=== PATIENT | female | born 1990 | race Two or more races ===

== ENCOUNTER 2016-07-09 22:50 | Emergency (ER) | payer OTHER, MEDICAID ==
[2016-07-09 23:02] VITALS: RESP 16; TEMP 97.3; O2SAT 97
[2016-07-09] MEDS ORDERED: KETOROLAC 30 MG/1 ML SDV IVP ONE (23:17)
[2016-07-09] MEDS ORDERED: NS 1,000 ML IV ONE (23:17)
[2016-07-09] MEDS ORDERED: DEXAMETHASONE 10 MG/ML VIAL IVP ONE (23:17)
[2016-07-09] MEDS ORDERED: METOCLOPRAMIDE 10 MG/2 ML VIAL IVP ONE (23:17)
--- NOTE | 2016-07-09 23:20 | EDPHY ---
H & P Time Seen by Provider: 07/09/16 23:07 HPI/ROS: This is a 25-year-old female presenting to the emergency department complaining of intermittent headaches x 1months worsening headache over the past few days with increase in fluid intake increasing frequent urination. Patient states headache is worse frontal part of her head, intermittently throbbing. Denies any photophobia, no nausea or vomiting. Patient states she does have a history of migraines the only difference with the symptoms this time is increase in thirst and urination. Denies any other complaints REVIEW OF SYSTEMS: Constitutional: No fever no chills, increase in fluid intake Eyes: No blurred vision ENT: No sore throat Respiratory: No cough or shortness of breath Cardiac: No chest pain Gastrointestinal: No nausea vomiting Genitourinary: No dysuria, urinary frequency Musculoskeletal: No joint pain Skin: No rash Neurological: Positive headache no dizziness Past Medical/Surgical History: Past medical history: Positive for migraines Smoking Status: Never smoked Physical Exam: CONSTITUTIONAL: patient appeared well nourished, non-ill appearing and normally developed. No acute distress. Vital signs as documented. HEENT: Normocephalic atraumatic PERRLA. EOMI. NECK: Supple, FROM without pain RESP: Non-labored resp effort CARDIAC: RRR w/o murmur, keanu. Normal S1/S2 GI: Abd soft NTTP NEURO: AAOx3 CNII-XII intact. Ambulatory without gait disturbance EXTREMITIES: FROM without pain or difficulty. Positive cms intact SKIN: Warm and dry no rash PSYCH: Normal affect, calm, no distress, acting appropriately Constitutional: Initial Vital Signs Temperature (C) 36.3 C 07/09/16 23:01 Heart Rate 97 07/09/16 23:01 Respiratory Rate 16 07/09/16 23:01 Blood Pressure 118/81 H 07/09/16 23:01 O2 Sat (%) 97 07/09/16 23:01 O2 Delivery Mode Room Air Allergies/Adverse Reactions: No Known Allergies Allergy (Verified 07/09/16 23:02) Home Medications: Medication Instructions Recorded NK [No Known Home Meds] 07/09/16 Medical Decision Making ED Course/Re-evaluation: Discussed plan of care: IV fluids, CBC, Chem 7, IV Toradol 30 mg, IV Decadron, IV Benadryl, IV Reglan. 0020: Patient states she is feeling much better, states she has more of a dull headache may be a 0-1/10 no neuro changes. 0030: Discharge home--> stable, discussed discharge instructions Differential Diagnosis: Differential diagnosis considered but not limited to cluster headache, CVA, and SAH - Data Points Laboratory Results: Laboratory Results 07/09/16 23:35 07/09/16 23:35 07/09/16 07/09/16 23:35 23:35 WBC 8.04 10^3/uL 10^3/uL (3.80-9.50) RBC 4.47 10^6/uL 10^6/uL (4.18-5.33) Hgb 12.5 g/dL L g/dL (12.6-16.3) Hct 37.6 % L % (38.0-47.0) MCV 84.1 fL fL (81.5-99.8) MCH 28.0 pg pg (27.9-34.1) MCHC 33.2 g/dL g/dL (32.4-36.7) RDW 12.2 % % (11.5-15.2) Plt Count 204 10^3/uL 10^3/uL (150-400) MPV 9.1 fL fL (8.7-11.7) Neut % (Auto) 59.6 % % (39.3-74.2) Lymph % (Auto) 29.6 % % (15.0-45.0) [place] % (Auto) 7.6 % % (4.5-13.0) Eos % (Auto) 2.5 % % (0.6-7.6) Baso % (Auto) 0.5 % % (0.3-1.7) Nucleat RBC Rel Count 0.0 % % (0.0-0.2) Absolute Neuts (auto) 4.79 10^3/uL 10^3/uL (1.70-6.50) Absolute Lymphs (auto) 2.38 10^3/uL 10^3/uL (1.00-3.00) Absolute Monos (auto) 0.61 10^3/uL 10^3/uL (0.30-0.80) Absolute Eos (auto) 0.20 10^3/uL 10^3/uL (0.03-0.40) Absolute Basos (auto) 0.04 10^3/uL 10^3/uL (0.02-0.10) Absolute Nucleated RBC 0.00 10^3/uL 10^3/uL (0-0.01) Immature Gran % 0.2 % % (0.0-1.1) Immature Gran # 0.02 10^3/uL 10^3/uL (0.00-0.10) Sodium 141 mEq/L mEq/L (134-144) Potassium 3.8 mEq/L mEq/L (3.5-5.2) Chloride 107 mEq/L mEq/L (97-110) Carbon Dioxide 22 mEq/l mEq/l (22-31) Anion Gap 12 mEq/L mEq/L (8-16) BUN 17 mg/dL mg/dL (7-23) Creatinine 0.6 mg/dL mg/dL (0.6-1.0) Estimated GFR > 60 Glucose 96 mg/dL mg/dL (70-100) Calcium 9.4 mg/dL mg/dL (8.5-10.4) Medications Given: Discontinued Medications Dexamethasone (Decadron Injection) 10 mg IVP EDNOW ONE Stop: 07/09/16 23:18 Last Admin: 07/09/16 23:48 Dose: 10 mg Diphenhydramine HCl (Benadryl Injection) 25 mg IVP EDNOW ONE Stop: 07/09/16 23:18 Last Admin: 07/09/16 23:37 Dose: Not Given Sodium Chloride (Ns) 1,000 mls @ 0 mls/hr IV ONCE ONE PRN Reason: Wide Open Stop: 07/09/16 23:18 Last Admin: 07/09/16 23:48 Dose: 1,000 mls Ketorolac Tromethamine (Toradol) 30 mg IVP EDNOW ONE Stop: 07/09/16 23:18 Last Admin: 07/09/16 23:48 Dose: 30 mg Metoclopramide HCl (Reglan Injection) 10 mg IVP EDNOW ONE Stop: 07/09/16 23:18 Last Admin: 07/09/16 23:48 Dose: Not Given Departure - Departure Disposition: Home, Routine, Self-Care Clinical Impression: Tension headache Condition: Good Instructions: Tension Headache (ED), Acute Headache (ED) Additional Instructions: 1. Increase fluid intake, we discussed labs are unremarkable 2. can take [id number] medications Excedrin migraine the generic which contains: Aspirin, Tylenol, ibuprofen, and caffeine this may benefit with headaches 3. Follow up with the [facility] 4. If at any point in time you feel headaches have worsened or changes in symptoms: Blurred vision, gait disturbance, nausea vomiting return to the emergency department Referrals: NONE *PRIMARY CARE P,. [Primary Care Provider] - As per Instructions [facility],. [Clinic] - As per Instructions
[2016-07-09 23:42] LABS: % IMMATURE GRANULYOCYTES 0.2 % (0.0-1.1); ABSOLUTE IMMATURE GRANULOCYTES 0.02 10^3/uL (0.00-0.10); ADD DIFF? NO; ADD MORPH? NO; ADD SCAN? NO; ATYPICAL LYMPHOCYTE FLAG 10 (0-99); FRAGMENT RBC FLAG 0 (0-99); HEMATOCRIT 37.6 % (38.0-47.0); HEMOGLOBIN 12.5 g/dL (12.6-16.3); LEFT SHIFT FLG 0 (0-99); LIPEMIA HEMOLYSIS FLAG 80 (0-99); MEAN CELL HEMOGLOBIN CONCENTR. 33.2 g/dL (32.4-36.7); MEAN CELL VOLUME 84.1 fL (81.5-99.8); MEAN PLATELET VOLUME 9.1 fL (8.7-11.7); PLATELET CLUMPS FLAG 10 (0-99); PLATELET COUNT 204 10^3/uL (150-400); RED BLOOD CELL COUNT 4.47 10^6/uL (4.18-5.33); RED CELL DISTRIBUTION WIDTH 12.2 % (11.5-15.2)
[2016-07-09 23:56] LABS: ANION GAP 12 mEq/L (8-16); CALCIUM 9.4 mg/dL (8.5-10.4); CARBON DIOXIDE 22 mEq/l (22-31); CHLORIDE 107 mEq/L (97-110); CREATININE 0.6 mg/dL (0.6-1.0); GLOMERULAR FILTRATION RATE > 60; GLUCOSE 96 mg/dL (70-100); POTASSIUM 3.8 mEq/L (3.5-5.2); SODIUM 141 mEq/L (134-144)
[2016-07-10 00:41] VITALS: BP 115/76; PULSE 72
== END 2016-07-10 00:41 | disposition home or self-care (01) ==
DX: G44.209 Tension-type headache, unspecified, not intractable (principal)
CPT/HCPCS: 96374; J1885; J2765

== ENCOUNTER 2017-01-28 08:45 | Emergency (ER) | payer MEDICAID ==
[2017-01-28] MEDS ORDERED: NS 1,000 ML IV ONE (09:02)
[2017-01-28] MEDS ORDERED: METOCLOPRAMIDE 10 MG/2 ML VIAL IVP ONE (09:04)
[2017-01-28 09:17] LABS: % IMMATURE GRANULYOCYTES 0.1 % (0.0-1.1); ABSOLUTE IMMATURE GRANULOCYTES 0.01 10^3/uL (0.00-0.10); ADD DIFF? NO; ADD MORPH? NO; ADD SCAN? NO; ATYPICAL LYMPHOCYTE FLAG 10 (0-99); FRAGMENT RBC FLAG 0 (0-99); HEMATOCRIT 40.1 % (38.0-47.0); HEMOGLOBIN 13.5 g/dL (12.6-16.3); LEFT SHIFT FLG 0 (0-99); LIPEMIA HEMOLYSIS FLAG 80 (0-99); MEAN CELL HEMOGLOBIN 28.4 pg (27.9-34.1); MEAN CELL HEMOGLOBIN CONCENTR. 33.7 g/dL (32.4-36.7); MEAN CELL VOLUME 84.2 fL (81.5-99.8); MEAN PLATELET VOLUME 8.7 fL (8.7-11.7); PLATELET CLUMPS FLAG 10 (0-99); PLATELET COUNT 220 10^3/uL (150-400); RED BLOOD CELL COUNT 4.76 10^6/uL (4.18-5.33); RED CELL DISTRIBUTION WIDTH 12.6 % (11.5-15.2)
--- NOTE | 2017-01-28 09:18 | EDPHY ---
General Narrative: CHIEF COMPLAINT: Multiple complaints HISTORY OF PRESENT ILLNESS: Patient complains of decreased appetite, epigastric discomfort and nausea and vomiting. This has been present for several days. [id number]. Constant duration. Just feels like she cannot eat over the past few days. The nausea is persistent. She has not vomited food because she has not eaten any solids. She has had liquids only. She now feels that is too difficult. There is no true pain, but she describes a mild discomfort of the upper abdomen. She describes generalized malaise and fever. No neck pain or stiffness. No chest pain. No cough. REVIEW OF SYSTEMS: Ten systems reviewed and are negative unless otherwise noted in the HPI PCP: None currently SPECIALISTS: None PAST MEDICAL HISTORY: Denies any medical history PAST SURGICAL HISTORY: No surgical history SOCIAL HISTORY: Currently a student at [employer]. Originally from [place] FAMILY HISTORY: Noncontributory EXAMINATION General Appearance: Alert, no distress Head: normocephalic, atraumatic Eyes: Pupils equal and round, no conjunctival pallor or injection ENT, Mouth: Mucous membranes moist. Uvula midline. Airway widely patent Neck: Normal inspection, supple, non-tender Respiratory: Lungs are clear to auscultation no wheezing, rhonchi or crackles Cardiovascular: Regular rate and rhythm. No murmur Gastrointestinal: Abdomen is soft and nontender Back: non-tender, no bony abnormalities Neurological: A&O, nonfocal, normal gait Skin: Warm and dry, no rash. No petechiae or purpura Extremities: Nontender, no pedal edema Psychiatric: Mood and affect normal DIFFERENTIAL DIAGNOSES: Including but not limited to influenza, gastritis, enteritis, gastroenteritis, colitis, cholecystitis, cholelithiasis MDM: 9:10 a.m. Multiple vague complaints suggest the possibility of influenza and/or viral syndrome. Abdominal exam is benign. Vital signs stable. No acute distress. Laboratory studies pending. IV fluid 10:10 a.m. Laboratory studies are all negative. This includes a negative flu test. I have re-evaluated the patient. She says the nausea is improving but she thinks that the Reglan is affecting her. She is not tonic but she does appear to be jittery. I recently had ordered Benadryl but she declined. She has now agreed to try the Benadryl. Overall she states that she feels much better. 10:50 a.m. Patient re-evaluated. Benadryl has helped her symptoms. She has tolerated crackers and liquids without complication. At this point I do feel she is stable for discharge home. I will provide prescription for Zofran and promethazine for her nausea. Suspected this is a viral etiology with an uncomplicated gastritis at this time. Discharged home with the above and instructions to follow up with primary care physician. As she does not have one , I will provider the on-call primary care physician information. ED precautions discussed. She is comfortable this plan. - History Smoking Status: Never smoked - Objective Vital Signs: Initial Vital Signs Temperature (C) 97.3 F 01/28/17 08:47 Heart Rate 103 H 01/28/17 08:47 Respiratory Rate 18 01/28/17 08:47 Blood Pressure 117/87 H 01/28/17 08:47 O2 Sat (%) 96 01/28/17 08:47 O2 Delivery Mode Room Air Allergies/Adverse Reactions: No Known Allergies Allergy (Verified 01/28/17 08:47) Home Medications: Medication Instructions Recorded Ondansetron Odt [Zofran Odt 4 mg 4 mg PO Q6 PRN #12 tab 01/28/17 (*)] Promethazine HCl [Phenergan 25mg 25 mg PO Q8 PRN #12 tab 01/28/17 (*)] Laboratory Results: Laboratory Results 01/28/17 09:08 01/28/17 09:08 01/28/17 01/28/17 01/28/17 09:47 09:08 09:08 WBC RBC Hgb Hct MCV MCH MCHC RDW Plt Count MPV Neut % (Auto) Lymph % (Auto) [place] % (Auto) Eos % (Auto) Baso % (Auto) Nucleat RBC Rel Count Absolute Neuts (auto) Absolute Lymphs (auto) Absolute Monos (auto) Absolute Eos (auto) Absolute Basos (auto) Absolute Nucleated RBC Immature Gran % Immature Gran # Sodium Potassium Chloride Carbon Dioxide Anion Gap BUN Creatinine Estimated GFR Glucose Calcium Total Bilirubin Conjugated Bilirubin Unconjugated Bilirubin AST ALT Alkaline Phosphatase Total Protein Albumin Lipase Beta HCG, Qual NEGATIVE Urine Color YELLOW Urine Appearance HAZY Urine pH 8.0 H (5.0-7.5) Ur Specific [place] 1.019 (1.002-1.030) Urine Protein NEGATIVE (NEGATIVE) Urine Ketones NEGATIVE (NEGATIVE) Urine Blood NEGATIVE (NEGATIVE) Urine Nitrate NEGATIVE (NEGATIVE) Urine Bilirubin NEGATIVE (NEGATIVE) Urine Urobilinogen NEGATIVE EU EU (0.2-1.0) Ur Leukocyte Esterase NEGATIVE (NEGATIVE) Urine RBC Not Reported Urine WBC 1-3 /hpf /hpf (0-3) Ur Epithelial Cells 2+ /lpf H /lpf (NONE-1+) Urine Mucus TRACE /lpf /lpf (NONE-1+) Urine Glucose NEGATIVE (NEGATIVE) Nasal Influenza A PCR NEGATIVE FOR FLU A (NEGATIVE) Nasal Influenza B PCR NEGATIVE FOR FLU B (NEGATIVE) 01/28/17 01/28/17 09:08 09:08 WBC 6.95 10^3/uL 10^3/uL (3.80-9.50) RBC 4.76 10^6/uL 10^6/uL (4.18-5.33) Hgb 13.5 g/dL g/dL (12.6-16.3) Hct 40.1 % % (38.0-47.0) MCV 84.2 fL fL (81.5-99.8) MCH 28.4 pg pg (27.9-34.1) MCHC 33.7 g/dL g/dL (32.4-36.7) RDW 12.6 % % (11.5-15.2) Plt Count 220 10^3/uL 10^3/uL (150-400) MPV 8.7 fL fL (8.7-11.7) Neut % (Auto) 66.6 % % (39.3-74.2) Lymph % (Auto) 26.5 % % (15.0-45.0) [place] % (Auto) 5.2 % % (4.5-13.0) Eos % (Auto) 1.2 % % (0.6-7.6) Baso % (Auto) 0.4 % % (0.3-1.7) Nucleat RBC Rel Count 0.0 % % (0.0-0.2) Absolute Neuts (auto) 4.63 10^3/uL 10^3/uL (1.70-6.50) Absolute Lymphs (auto) 1.84 10^3/uL 10^3/uL (1.00-3.00) Absolute Monos (auto) 0.36 10^3/uL 10^3/uL (0.30-0.80) Absolute Eos (auto) 0.08 10^3/uL 10^3/uL (0.03-0.40) Absolute Basos (auto) 0.03 10^3/uL 10^3/uL (0.02-0.10) Absolute Nucleated RBC 0.00 10^3/uL 10^3/uL (0-0.01) Immature Gran % 0.1 % % (0.0-1.1) Immature Gran # 0.01 10^3/uL 10^3/uL (0.00-0.10) Sodium 142 mEq/L mEq/L (134-144) Potassium 4.0 mEq/L mEq/L (3.5-5.2) Chloride 104 mEq/L mEq/L (97-110) Carbon Dioxide 23 mEq/l mEq/l (22-31) Anion Gap 15 mEq/L mEq/L (8-16) BUN 12 mg/dL mg/dL (7-23) Creatinine 0.6 mg/dL mg/dL (0.6-1.0) Estimated GFR > 60 Glucose 103 mg/dL H mg/dL (70-100) Calcium 9.5 mg/dL mg/dL (8.5-10.4) Total Bilirubin 0.4 mg/dL mg/dL (0.1-1.4) Conjugated Bilirubin 0.1 mg/dL mg/dL (0.0-0.5) Unconjugated Bilirubin 0.3 mg/dL mg/dL (0.0-1.1) AST 53 IU/L H IU/L (14-46) ALT 84 IU/L H IU/L (9-52) Alkaline Phosphatase 78 IU/L IU/L (38-126) Total Protein 7.8 g/dL g/dL (6.3-8.2) Albumin 4.4 g/dL g/dL (3.5-5.0) Lipase 59 IU/L IU/L (23-300) Beta HCG, Qual Urine Color Urine Appearance Urine pH Ur Specific [place] Urine Protein Urine Ketones Urine Blood Urine Nitrate Urine Bilirubin Urine Urobilinogen Ur Leukocyte Esterase Urine RBC Urine WBC Ur Epithelial Cells Urine Mucus Urine Glucose Nasal Influenza A PCR Nasal Influenza B PCR Medications Given: Discontinued Medications Diphenhydramine HCl (Benadryl Injection) 25 mg IVP EDNOW ONE Stop: 01/28/17 09:05 Last Admin: 01/28/17 09:23 Dose: Not Given Diphenhydramine HCl (Benadryl Injection) 12.5 mg IVP EDNOW ONE Stop: 01/28/17 10:15 Last Admin: 01/28/17 10:16 Dose: 12.5 mg Sodium Chloride (Ns) 1,000 mls @ 0 mls/hr IV ONCE ONE; Wide Open PRN Reason: Protocol Stop: 01/28/17 09:03 Last Admin: 01/28/17 09:17 Dose: 1,000 mls Metoclopramide HCl (Reglan Injection) 10 mg IVP EDNOW ONE Stop: 01/28/17 09:05 Last Admin: 01/28/17 09:17 Dose: 10 mg Departure - Departure Disposition: Home, Routine, Self-Care Clinical Impression: Gastritis Qualifiers: Gastritis type: unspecified gastritis Chronicity: acute Gastritis bleeding: without bleeding Qualified Code(s): K29.00 - Acute gastritis without bleeding Nausea & vomiting Qualifiers: Vomiting type: unspecified Vomiting Intractability: non-intractable Qualified Code(s): R11.2 - Nausea with vomiting, unspecified Condition: Good Instructions: Gastritis (ED), Acute Nausea and Vomiting (ED) Additional Instructions: 1. Clear liquid diet for the next 24-48 hours 2. Advance diet slowly as tolerated 3. Nausea medications as prescribed as needed 4. ED precautions as discussed Referrals: NONE *PRIMARY CARE P,. [Primary Care Provider] - As per Instructions Jared Stewart MD [Medical Doctor] - As per Instructions Prescriptions: Ondansetron Odt [Zofran Odt 4 mg (*)] 4 mg PO Q6 PRN #12 tab PRN Reason: Nausea/Vomiting, Use 1st Promethazine HCl [Phenergan 25mg (*)] 25 mg PO Q8 PRN #12 tab PRN Reason: Nausea/Vomiting, Use 1st
[2017-01-28 09:43] LABS: ALANINE AMINOTRANSFERASE 84 IU/L (9-52); ALBUMIN 4.4 g/dL (3.5-5.0); ALKALINE PHOSPHATASE 78 IU/L (38-126); ANION GAP 15 mEq/L (8-16); ASPARTATE AMINOTRANSFERASE 53 IU/L (14-46); BILIRUBIN,TOTAL 0.4 mg/dL (0.1-1.4); BILIRUBIN-CONJUGATED 0.1 mg/dL (0.0-0.5); BILIRUBIN-UNCONJUGATED 0.3 mg/dL (0.0-1.1); CALCIUM 9.5 mg/dL (8.5-10.4); CARBON DIOXIDE 23 mEq/l (22-31); CHLORIDE 104 mEq/L (97-110); CREATININE 0.6 mg/dL (0.6-1.0); GLOMERULAR FILTRATION RATE > 60; GLUCOSE 103 mg/dL (70-100); SODIUM 142 mEq/L (134-144); TOTAL PROTEIN 7.8 g/dL (6.3-8.2)
[2017-01-28 10:00] LABS: COLOR YELLOW; LEUKOCYTE ESTERASE,URINE NEGATIVE (NEGATIVE); NITRITE,URINE NEGATIVE (NEGATIVE)
[2017-01-28 10:02] LABS: MUCUS TRACE /lpf (NONE-1+)
[2017-01-28 10:49] VITALS: BP 114/70; PULSE 83; RESP 16; TEMP 98.2; O2SAT 100
== END 2017-01-28 11:04 | disposition home or self-care (01) ==
DX: K29.00 Acute gastritis without bleeding (principal); E86.9 Volume depletion, unspecified
CPT/HCPCS: 96374; J1200; J2765

== ENCOUNTER → 2017-07-26 | Outpatient (CLI) | payer OTHER, MEDICAID | LOC: BMCIMAGING 11:22 | PROVIDERS: ATTEND Advanced Practice Midwife | DX: N63.20 Unspecified lump in the left breast, unspecified quadrant (principal); N64.4 Mastodynia ==

== ENCOUNTER 2017-08-03 16:16 | Inpatient (IN) | payer OTHER, MEDICAID ==
[2017-08-03] MEDS ORDERED: NS 1,000 ML IV ONE ×2 (16:48)
[2017-08-03] MEDS ORDERED: cefTRIAXone 2 GM in STERILE WATER INJ 20 ML IV ONE (16:48)
--- NOTE | 2017-08-03 16:52 | EDPHY ---
H & P Stated Complaint: fever/abd pain/nausea x 1 week seen at the [facility] Time Seen by Provider: 08/03/17 16:30 HPI/ROS: HPI: This is a 26-year-old female who presents with Chief Complaint: fever/abd pain/nausea x 1 week seen at [facility] Location: Body Quality: Aches Duration: 1 week Signs and Symptoms: + low-grade subjective fever, + nausea, no vomiting, no hematemesis, no blood in stool, no abdominal bloating, no diarrhea, no back pain , no urinary symptoms, no testicular/groin pain, no indigestion, no chest pain, no shortness of breath Timing: Acute, daily Severity: Moderate Context: Patient is a local [employer] student presents from [facility] with complaints low-grade fever, nausea and body aches x1 week. She has been seen at the [facility] x2 this week. Symptoms started Monday with generalized body aches and fatigue. Later in the week she started to developed nausea with low subjective fever. Today she was diagnosed with a urinary tract infection and placed on Levaquin. Patient taking Tylenol and ibuprofen. Chest x-ray ordered and per radiologist' s read was normal. CMP showed mild increase in LFTs with normal ESR and CBC stable. Platelets noted to be 88K. Influenza and Strep test negative. [place] negative. LMP 2-3 weeks ago. Patient denies any abdominal pain, diarrhea, urinary symptoms to me. Patient was then sent to the construction sales manager and had a negative pelvic exam for PID. 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 CONSTITUTIONAL: Extremely well-appearing young adult female, awake and alert, no obvious distress HEENT: Atraumatic and normocephalic, PERRL, EOMI. Nares patent; no rhinorrhea; no nasal mucosal edema. Tympanic membranes clear. Oropharynx clear, no exudate and moist pink mucosa. Airway patent. No lymphadenopathy. No meningismus. Cardiovascular: Normal S1/S2, tachycardia, regular rhythm, without murmur rub or gallop. PULMONARY/CHEST: Symmetrical and nontender. Clear to auscultation bilaterally. Good air movement. No accessory muscle usage. ABDOMEN: Soft, nondistended, mild right lower quadrant and left lower quadrant tenderness to deep palpation, no rebound, no guarding, no peritoneal signs, no masses or organomegaly. No CVAT. EXTREMITIES: 2/2 pulses, strength 5/5, no deformities, no clubbing, no cyanosis or edema. NEUROLOGICAL: no focal neuro deficits. GCS 15. SKIN: Warm and dry, no erythema. no rash. Good capillary refill. Source: Patient, Old records Exam Limitations: No limitations - Personal History LMP (Females 10-55): 15-21 Days Ago Current Tetanus/Diphtheria Vaccine: Yes - Medical/Surgical History Hx Asthma: No Hx Chronic Respiratory Disease: No Hx Diabetes: No Hx Cardiac Disease: No Hx Renal Disease: No Hx Cirrhosis: No Hx Alcoholism: No Hx HIV/AIDS: No Hx Splenectomy or Spleen Trauma: No Other PMH: none reported - Social History Smoking Status: Never smoked Constitutional: Initial Vital Signs Temperature (C) 37.2 C 08/03/17 16:22 Heart Rate 128 H 08/03/17 16:22 Respiratory Rate 18 08/03/17 16:22 Blood Pressure 105/71 08/03/17 16:22 O2 Sat (%) 95 08/03/17 16:22 O2 Delivery Mode Room Air Allergies/Adverse Reactions: No Known Allergies Allergy (Verified 08/03/17 16:22) Home Medications: Medication Instructions Recorded Testosterone 08/03/17 Tylenol 325mg (*) 08/03/17 Medical Decision Making - Diagnostics Imaging Results: Imaging Impressions Abdomen CT 08/03/17 17:00 Impression: 1. Normal appendix. 2. Trace free fluid in the low pelvis. No abscess. 3. Normal upper urinary tract. No evidence of striated nephrogram, perinephric fluid collection, or hydroureteronephrosis. Findings discussed with Emergency Department Physician Exchange Underwriting Consultant, NANCIE Lara, on August 03, 2017 at 1804. 12 lead EKG: Indication: Tachycardia Rhythm: Sinus tachycardia rate 121 beats per minute [place]: Normal Intervals: Normal QRS: Normal ST segments: Normal T-waves: Flattened INTERPRETATION: Normal EKG The 12 lead EKG was interpreted by myself and with attending. ED Course/Re-evaluation: Labs, EKG, IV fluids, UA, CT A/P scan ordered. Given 2 L normal saline EKG shows sinus tachycardia with a heart rate of 121. 1657: WBC 2 K; platelets 85 K Lactic acid 2.7; IV fluids 30 mg/kg; TSH level low-free T4 level ordered 1802: called by radiologist who advised that normal kidneys, normal appendix, trace fluid in the pelvis, numerous ovarian follicles. Urinalysis shows early signs of infection; sent for urine culture; IV Rocephin 2 g given 1818: ED decision to consult for admission for SIRS, low thyroid, thrombocytopenia, urinary tract infection. Spoke with Dr. Gagnon, hospitalist, who kindly agrees to admit patient for further care. Please note that result of repeat lactic acid pending at time of consult. This patient was seen under the supervision of my secondary supervising physician. I evaluated care for this patient independently. Discussed this patient with Dr. Estevez who did not see the patient. Differential Diagnosis: Adult fever including but not limited to viral syndromes including influenza, urinary tract infection, pneumonia and sepsis. - Data Points Laboratory Results: Laboratory Results 08/03/17 16:45 08/03/17 16:45 08/03/17 08/03/17 08/03/17 17:30 16:45 16:45 WBC RBC Hgb Hct MCV MCH MCHC RDW Plt Count MPV Neut % (Auto) Lymph % (Auto) [place] % (Auto) Eos % (Auto) Baso % (Auto) Nucleat RBC Rel Count Absolute Neuts (auto) Absolute Lymphs (auto) Absolute Monos (auto) Absolute Eos (auto) Absolute Basos (auto) Absolute Nucleated RBC Immature Gran % Seg Neutrophils % Band Neutrophils % Lymphocytes % Monocytes % Eosinophils % Basophils % Metamyelocytes % Myelocytes % Promyelocytes % Blast Cells % Immature Gran # Absolute Seg Neuts Absolute Band Neuts Absolute Lymphocytes Absolute Monocytes Absolute Eosinophils Absolute Basophils Absolute Metamyelocyte Absolute Myelocytes Absolute Promyelocytes Absolute Plasma Cells RBC/WBC/PLT Morphology Absolute Blast Cells Plasma Cells % Platelet Estimate VBG Lactic Acid Sodium Potassium Chloride Carbon Dioxide Anion Gap BUN Creatinine Estimated GFR Glucose Calcium Total Bilirubin Conjugated Bilirubin Unconjugated Bilirubin AST ALT Alkaline Phosphatase Total Protein Albumin TSH Free T4 0.99 ng/dL ng/dL (0.59-2.19) Beta HCG, Qual NEGATIVE Specimen Hemolysis Urine Color YELLOW Urine Appearance CLEAR Urine pH 5.0 (5.0-7.5) Ur Specific [place] 1.024 (1.002-1.030) Urine Protein NEGATIVE (NEGATIVE) Urine Ketones NEGATIVE (NEGATIVE) Urine Blood NEGATIVE (NEGATIVE) Urine Nitrate NEGATIVE (NEGATIVE) Urine Bilirubin NEGATIVE (NEGATIVE) Urine Urobilinogen NEGATIVE EU EU (0.2-1.0) Ur Leukocyte Esterase TRACE H (NEGATIVE) Urine RBC 1-3 /hpf /hpf (0-3) Urine WBC 3-5 /hpf H /hpf (0-3) Ur Epithelial Cells 1+ /lpf /lpf (NONE-1+) Urine Bacteria TRACE /hpf H /hpf (NONE SEEN) Urine Glucose NEGATIVE (NEGATIVE) Monoscreen 08/03/17 08/03/17 08/03/17 16:45 16:45 16:45 WBC 2.80 10^3/uL L 10^3/uL (3.80-9.50) RBC 4.74 10^6/uL 10^6/uL (4.18-5.33) Hgb 12.9 g/dL g/dL (12.6-16.3) Hct 39.7 % % (38.0-47.0) MCV 83.8 fL fL (81.5-99.8) MCH 27.2 pg L pg (27.9-34.1) MCHC 32.5 g/dL g/dL (32.4-36.7) RDW 13.2 % % (11.5-15.2) Plt Count 85 10^3/uL L 10^3/uL (150-400) MPV 10.3 fL fL (8.7-11.7) Neut % (Auto) Not Reported Lymph % (Auto) Not Reported [place] % (Auto) Not Reported Eos % (Auto) Not Reported Baso % (Auto) Not Reported Nucleat RBC Rel Count Not Reported Absolute Neuts (auto) Not Reported Absolute Lymphs (auto) Not Reported Absolute Monos (auto) Not Reported Absolute Eos (auto) Not Reported Absolute Basos (auto) Not Reported Absolute Nucleated RBC Not Reported Immature Gran % Not Reported Seg Neutrophils % 61.5 % % Band Neutrophils % 19.8 % % Lymphocytes % 15.6 % % Monocytes % 3.1 % % Eosinophils % 0 % % Basophils % 0 % % Metamyelocytes % 0 % % Myelocytes % 0 % % Promyelocytes % 0 % % Blast Cells % 0 % % Immature Gran # Not Reported Absolute Seg Neuts 1.72 10^/uL 10^/uL (1.70-6.50) Absolute Band Neuts 0.55 10^3/uL 10^3/uL (0.00-0.70) Absolute Lymphocytes 0.44 10^3/uL L 10^3/uL (1.00-3.00) Absolute Monocytes 0.09 10^3/uL L 10^3/uL (0.30-0.80) Absolute Eosinophils 0.00 10^3/uL L 10^3/uL (0.03-0.40) Absolute Basophils 0.00 10^3/uL L 10^3/uL (0.02-0.10) Absolute Metamyelocyte 0.00 10^3/mL 10^3/mL (0.00-0.00) Absolute Myelocytes 0.00 10^3/mL 10^3/mL (0.00-0.00) Absolute Promyelocytes 0.00 10^3/uL 10^3/uL (0.00-0.00) Absolute Plasma Cells 0.00 10^3/uL 10^3/uL (0.00-0.00) RBC/WBC/PLT Morphology NORMAL (NORMAL) Absolute Blast Cells 0.00 10^3/uL 10^3/uL (0.00-0.00) Plasma Cells % 0 % % Platelet Estimate DECREASED L (ADEQ) VBG Lactic Acid 2.7 mmol/L H mmol/L (0.7-2.1) Sodium Potassium Chloride Carbon Dioxide Anion Gap BUN Creatinine Estimated GFR Glucose Calcium Total Bilirubin Conjugated Bilirubin Unconjugated Bilirubin AST ALT Alkaline Phosphatase Total Protein Albumin TSH Free T4 Beta HCG, Qual Specimen Hemolysis Urine Color Urine Appearance Urine pH Ur Specific [place] Urine Protein Urine Ketones Urine Blood Urine Nitrate Urine Bilirubin Urine Urobilinogen Ur Leukocyte Esterase Urine RBC Urine WBC Ur Epithelial Cells Urine Bacteria Urine Glucose Monoscreen NEGATIVE (NEGATIVE) 08/03/17 16:45 WBC RBC Hgb Hct MCV MCH MCHC RDW Plt Count MPV Neut % (Auto) Lymph % (Auto) [place] % (Auto) Eos % (Auto) Baso % (Auto) Nucleat RBC Rel Count Absolute Neuts (auto) Absolute Lymphs (auto) Absolute Monos (auto) Absolute Eos (auto) Absolute Basos (auto) Absolute Nucleated RBC Immature Gran % Seg Neutrophils % Band Neutrophils % Lymphocytes % Monocytes % Eosinophils % Basophils % Metamyelocytes % Myelocytes % Promyelocytes % Blast Cells % Immature Gran # Absolute Seg Neuts Absolute Band Neuts Absolute Lymphocytes Absolute Monocytes Absolute Eosinophils Absolute Basophils Absolute Metamyelocyte Absolute Myelocytes Absolute Promyelocytes Absolute Plasma Cells RBC/WBC/PLT Morphology Absolute Blast Cells Plasma Cells % Platelet Estimate VBG Lactic Acid Sodium 140 mEq/L mEq/L (135-145) Potassium 4.0 mEq/L mEq/L (3.5-5.2) Chloride 104 mEq/L mEq/L (97-110) Carbon Dioxide 24 mEq/l mEq/l (22-31) Anion Gap 12 mEq/L mEq/L (8-16) BUN 11 mg/dL mg/dL (7-23) Creatinine 0.5 mg/dL L mg/dL (0.6-1.0) Estimated GFR > 60 Glucose 122 mg/dL H mg/dL (70-100) Calcium 8.4 mg/dL L mg/dL (8.5-10.4) Total Bilirubin 0.6 mg/dL mg/dL (0.1-1.4) Conjugated Bilirubin 0.5 mg/dL mg/dL (0.0-0.5) Unconjugated Bilirubin 0.1 mg/dL mg/dL (0.0-1.1) AST 110 IU/L H IU/L (14-46) ALT 76 IU/L H IU/L (9-52) Alkaline Phosphatase 77 IU/L IU/L (38-126) Total Protein 6.9 g/dL g/dL (6.3-8.2) Albumin 3.6 g/dL g/dL (3.5-5.0) TSH < 0.015 uIU/mL L uIU/mL (0.465-4.680) Free T4 Beta HCG, Qual Specimen Hemolysis 106 Urine Color Urine Appearance Urine pH Ur Specific [place] Urine Protein Urine Ketones Urine Blood Urine Nitrate Urine Bilirubin Urine Urobilinogen Ur Leukocyte Esterase Urine RBC Urine WBC Ur Epithelial Cells Urine Bacteria Urine Glucose Monoscreen Medications Given: Discontinued Medications Ceftriaxone Sodium 2 gm/ (Sterile Water) 20 mls @ 300 mls/hr IV EDNOW ONE PRN Reason: Protocol Stop: 08/03/17 16:51 Last Admin: 08/03/17 17:06 Dose: 20 mls Sodium Chloride (Ns) 1,000 mls @ 0 mls/hr IV ONCE ONE; Wide Open PRN Reason: Protocol Stop: 08/03/17 16:49 Last Admin: 08/03/17 17:06 Dose: 1,000 mls Sodium Chloride (Ns) 1,000 mls @ 0 mls/hr IV ONCE ONE; Wide Open PRN Reason: Protocol Stop: 08/03/17 16:49 Last Admin: 08/03/17 17:06 Dose: 1,000 mls Departure - Departure Disposition: [facility] Inpatient Acute Clinical Impression: Thrombocytopenia, SIRS (systemic inflammatory response syndrome), Acute lower UTI (urinary tract infection), Low TSH level Condition: Fair
--- NOTE | 2017-08-03 16:54 | CPEKG ---
Heart Rate: 121 RR Interval: 496 P-R Interval: 140 QRSD Interval: 70 QT Interval: 316 QTC Interval: 449 P [place]: 42 QRS [place]: 68 T Wave [place]: 13 EKG Severity - BORDERLINE ECG - EKG Impression: SINUS TACHYCARDIA EKG Impression: BORDERLINE T ABNORMALITIES, ANTERIOR LEADS Electronically Signed By: Sanjay Estevez 03-Aug-2017 21:25:23
[2017-08-03 16:58] LABS: PLATELET COUNT 85 10^3/uL (150-400)
[2017-08-03] MEDS ORDERED: IOPAMIDOL (ISOVUE-300) 100 ML BTL ONE (17:30)
[2017-08-03] MEDS ORDERED: ONDANSETRON 4 MG/2 ML VIAL IVP ONE (19:01)
[2017-08-03] MEDS ORDERED: HYDROmorphone HCL/NS 0.5 MG/ML SYR IVP PRN (20:19)
[2017-08-03] MEDS ORDERED: traMADol 50 MG TAB PO PRN (20:19)
[2017-08-03] MEDS ORDERED: ONDANSETRON 4 MG/2 ML VIAL IVP PRN (20:19)
[2017-08-03] MEDS ORDERED: PROMETHAZINE HCL 25 MG/ML INJ IVP PRN (20:19)
--- NOTE | 2017-08-03 21:01 | GHP ---
[f rep st] HISTORY AND PHYSICAL DATE OF ADMISSION: 08/03/2017 CHIEF COMPLAINT: Fever. HISTORY OF PRESENT ILLNESS: The patient is a 26-year-old, transgender male, who presents with fever and abdominal pain and nausea for 1 week. He has visited [facility] 3 times earlier this week and h ad multiple tests including flu, strep, and mono that were all negative. Chest x-ray was negative. He was sent to [facility] and had negative pelvic exam for PID. Last menstrual period was 3 weeks ago and c ontinues to have periods, but is currently on testosterone. He was diagnosed with a urinary tract in [facility] and started on Levaquin. Continues to feel quite ill, so presented now to the emergency room . He has had all over body aches for 1 week. Abdominal pain is just below the umbilicus. PAST MEDICAL HISTORY: 1. Scoliosis. 2. Mild Asperger's. 3. Transgendered male. 4. Bipolar. 5. Viral meningitis. 6. Rheumatoid arthritis in remission. 7. Eating disorder/anorexia nervosa. 8. History of increased liver function tests, status post liver normal liver biopsy with subsequent normalization of liver tests. MEDICATIONS: Please see computer record for full detailed list. ALLERGIES: No known drug allergies. SOCIAL HISTORY: No smoking. No alcohol. He is a [employer] student. Living in a studio apartment alone. Sexually active with women. REVIEW OF SYSTEMS: Complete review of systems obtained. Review of systems negative regarding consti tutional, HEENT, GI, pulmonary, cardiovascular, , hematology, skin, musculoskeletal, endocrine, and psychiatric except for positives and negatives as in HPI. FAMILY HISTORY: Reviewed, noncontributory to the presenting complaint. PHYSICAL EXAMINATION: GENERAL: Well-developed, well-nourished transgendered male in no acute distre ss. VITAL SIGNS: Temperature 37.2, pulse 128, blood pressure 104/66, saturating 96% on room air. E YES: Normal conjunctivae. Pupils are equal and reactive to light. ENT: Normal ears and nose. Hea ring intact. Normal teeth. Oropharynx moist. NECK: Trachea midline. No thyromegaly. CHEST: Norm al respiratory effort. LUNGS: Clear to auscultation bilaterally. CARDIOVASCULAR: Regular rhythm. No murmur. No extremity edema. ABDOMEN: Soft, nontender. No hepatosplenomegaly. SKIN: Warm, dr y, intact without rash. MUSCULOSKELETAL: No cyanosis or clubbing. Strength 5/5 in upper and lower extremities. NEUROLOGIC: Cranial nerves intact. Normal sensation to light touch. PSYCHIATRIC: Al ert and oriented x3. Normal affect. Normal judgment. Normal insight. Normal memory. LABORATORY DATA: White count 2.8, 19% bands. Hematocrit 39.7, platelets 85. Sodium 140, potassium 4.0, chloride 104, bicarbonate 24, BUN 11, creatinine 0.5, glucose 122. AST 110. ALT is 76. TSH is less than 0.015. Lactate is 2.7. Urinalysis is 3-[address] scan of the abdomen and pelvis is negative. EKG is viewed by me. My personal interpretation is sinus tachycardia with T-wave flattening. ASSESSMENT AND PLAN: 1. Sepsis. The patient has a significant 19% bandemia with tachycardia and elevated lactate. This may all be systemic inflammatory response syndrome due to a viral infection. However, I am concerne d about the bandemia, as that would be more indicative of a bacterial process. We will hydrate with intravenous fluid and continue to follow serial lactates until normalized. Blood cultures have been sent. I believe blood cultures were also sent earlier from [facility]. We will continue intravenous ceftriaxone for possible urinary tract infection. Would also consider contacting [facility] for uri ne cultures from earlier in the week. 2. Thrombocytopenia. I wonder if this may be due to her sepsis. I also think we need to rule out u nderlying autoimmune, as discussed below. 3. Increased liver function tests. The patient does have abdominal pain and nausea. We will check an ultrasound to rule out gallbladder as a source. We will check a viral hepatitis panel. 4. Transgender male. Continue testosterone. 5. TSH suppression with a normal T4. This may be euthyroid sick due to her overall illness. This should be rechecked as an outpatient when he is well. 6. Rheumatoid arthritis in remission. Has been on immunotherapy in the past. Need to rule out a rh eumatologic cause of current symptom presentation, especially since the course has become somewhat pr otracted for a viral process. We will check a rheumatoid factor, ORTEGA, as well as a sedimentation rat e and CRP. ADMISSION STATUS: Will admit to observation. Reevaluate tomorrow regarding ongoing need for hospita lization. CODE STATUS: Full. DVT PROPHYLAXIS: He is low risk. /[id number]/MODL
[2017-08-03] MEDS: NS 1,000 ML IV SCH (21:38)
[2017-08-03] MEDS: ACETAMINOPHEN 325 MG TAB PO PRN (22:45)
[2017-08-04 04:41] LABS: PLATELET COUNT 87 10^3/uL (150-400)
[2017-08-04] MEDS: NS 1,000 ML IV SCH (06:30)
[2017-08-04 06:44] LABS: HEPATITIS C ANTIBODY TOTAL NEGATIVE (NEGATIVE)
[2017-08-04] MEDS: ONDANSETRON DISINTEGRATING 4 MG TAB PO PRN ×2 (08:17→21:59)
[2017-08-04 08:48] LABS: HEPATITIS B SURFACE ANTIGEN NEGATIVE (NEGATIVE)
[2017-08-04 08:54] LABS: HEPATITIS A ANTIBODY IGM (BCH) NEGATIVE (NEGATIVE); HEPATITIS B CORE AB IGM NEGATIVE (NEGATIVE)
--- NOTE | 2017-08-04 09:59 | ASMTCMCOM ---
CM Note CM Note Notes: Pt. is a 26-year-old man (transgender female to male per notes) who is a student. Admitted to [facility] after going to [facility] at twice this week for fever, abdominal pain, and nausea. Has sepsis and thrombocytopenia. Hx. Rheumatoid arthritis, scoliosis, mild Asperger's, Bipolar disorder, depression, anxiety, viral meningitis, and anorexia nervosa. Hx. of increased liver function tests. Pt. lives in a studio apartment alone. SWer went to see Pt. to let him know about emotional support available at [facility] should he need it. Also, should he experience any care that is not sensitive, we can assist. Pt. acknowledged assistance available. Did not seem interested in more conversation and did not make eye contact. Possible relational issues due to Aspergers. Anticipate indepedent d/c when ready. CM available should d/c POC change. Date Signed: 08/04/2017 09:59 AM Electronically Signed By:Flores Panda LCSW
--- NOTE | 2017-08-04 11:02 | HOSPPROG ---
Hospitalist Progress Note Assessment/Plan: #sepsis, (bandemia, tachycardia, elevated lactic acid) -resolving -source likely UTI -No resp sx's -negative recent pelvic exam for PID -cont Rocephin -Trial off IVF #likely UTI -mgmt per above -await culture #Transgender Male #Hx of RA Plan: -cont Rocephin -stop IVF -Monitor overnight, change to inpatient -await cultures -repeat CRP to ensure improving, elevation likely infection -Will need Thyroid function testing as outpatient SCDs Subjective: Feels better. No urinary sx's. BP ok. Objective: Vital Signs Temp Pulse Resp BP Pulse Ox 36.9 C 109 H 14 110/58 L 91 L 08/04/17 07:23 08/04/17 07:23 08/04/17 07:23 08/04/17 07:23 08/04/17 07:23 Microbiology 08/03/17 19:06 Respiratory Panel (PCR) - Final Nasal, Sinus - Swab No Organism Detected Laboratory Results 08/04/17 04:28 08/04/17 04:28 08/03/17 08/04/17 08/05/17 05:59 05:59 05:59 Intake Total 1000 Balance 1000 - Physical Exam Constitutional: no apparent distress Eyes: PERRL, EOMI Ears, Nose, Mouth, Throat: moist mucous membranes Cardiovascular: regular rate and rhythym Respiratory: no respiratory distress, no rales or rhonchi Gastrointestinal: normoactive bowel sounds, soft, non-tender abdomen Skin: warm Neurologic: AAOx3 Psychiatric: interacting appropriately, not anxious, not encephalopathic Lymph, Heme, Immunologic: No petechiae ICD10 Worksheet Patient Problems: Problems Problem Status Onset Acute lower UTI (urinary tract infection) Acute Low TSH level Acute SIRS (systemic inflammatory response syndrome) Acute Thrombocytopenia Acute
--- NOTE | 2017-08-04 14:46 | PDMN ---
Medical Necessity Medical necessity: Patient meets inpatient criteria per physician note and MCG Systemic or Infectious Condition GRG (sepsis/likely UTI: ongoing tachycardia after IV hydration/initiation of IV antibiotics, bandemia, elevated lactic acid (resolving); LOS will be > 2 midnights for ongoing IV antibiotics, urine and blood culture results, trial off IVF.)
[2017-08-04] MEDS: ACETAMINOPHEN 325 MG TAB PO PRN (16:35)
[2017-08-05] MEDS: ACETAMINOPHEN 325 MG TAB PO PRN ×2 (04:54→09:44)
[2017-08-05 05:08] LABS: PLATELET COUNT 110 10^3/uL (150-400)
[2017-08-05 08:05] VITALS: BP 98/70
--- NOTE | 2017-08-05 08:57 | ASMTCMCOM ---
CM Note CM Note Notes: Pt. to d/c independently today. Date Signed: 08/05/2017 08:56 AM Electronically Signed By:Flores Panda LCSW
--- NOTE | 2017-08-05 08:58 | ASMTLACE ---
DORONE Length of stay for Answers: 2 days current admission Acuity / Level of Answers: Yes Care: Did the patient have an inpatient admission? Comorbidities - select Answers: Connective tissue disease all that apply # of Emergency department Answers: 1-2 visits in the last 6 months Social determinants Answers: Mental health diagnosis (anxiety, depression, pers onality disorders, etc.) Score: 12 Date Signed: 08/04/2017 09:39 AM Electronically Signed By:Flores Panda LCSW
--- NOTE | 2017-08-05 09:13 | GDS ---
[f rep st] DISCHARGE SUMMARY DISCHARGE DIAGNOSES: 1. Urinary tract infection. 2. Sepsis secondary to above. 3. History of rheumatoid arthritis. HISTORY: This is a 26-year-old transgender male, who presented with fever, abdominal pain. He did h ave a pelvic exam that was negative for PID prior. HOSPITAL COURSE: Patient was admitted. He had a CAT scan was negative for appendicitis or any other intraabdominal process. He also had an abdominal ultrasound, which was negative for any liver patho logy. With IV ceftriaxone, his symptoms improved. He did have a leukopenia, which improved. Lactic acid also resolved or normalized. Liver function tests were elevated, as well. Hepatitis panel was negative. Abdominal ultrasound also was negative. We think this was due to sepsis. As he was feel ing better, vital signs were stable, and he was eating, he is going to be discharged home with 5 more days of antibiotics. DISPOSITION: Home. DISCHARGE MEDICATIONS: He is to resume his home medicines. In addition, he was given Ceftin 250 mg b.i.d. for 5 more days. TIME SPENT: Greater than 30 minutes was spent on this discharge. /[id number]/MODL
== END 2017-08-05 11:17 | disposition home or self-care (01) | DRG 872 ==
LOC: OBSVTOIN 18:32 → F3E 20:54
PROVIDERS: ADMIT Internal Medicine; ATTEND Internal Medicine
DX: A41.89 Other specified sepsis (principal); N39.0 Urinary tract infection, site not specified; D69.6 Thrombocytopenia, unspecified; R00.0 Tachycardia, unspecified; R79.89 Other specified abnormal findings of blood chemistry; F64.0 Transsexualism; F84.5 Asperger's syndrome; Z86.61 Personal history of infections of the central nervous system; F31.9 Bipolar disorder, unspecified; F41.8 Other specified anxiety disorders; M06.9 Rheumatoid arthritis, unspecified; M41.9 Scoliosis, unspecified; Z79.890 Hormone replacement therapy
CPT/HCPCS: 96374; G0378; G0472; J0696; J2405; Q9967

== ENCOUNTER 2018-03-05 09:22 | Emergency (ER) | payer MEDICAID, OTHER ==
[2018-03-05] MEDS ORDERED: NS 1,000 ML IV ONE (09:58)
[2018-03-05 10:11] LABS: PLATELET COUNT 242 10^3/uL (150-400)
--- NOTE | 2018-03-05 10:31 | EDPHY ---
General Time Seen by Provider: 03/05/18 09:58 Narrative: CHIEF COMPLAINT: Abdominal pain HISTORY OF PRESENT ILLNESS: Patient presents prior vehicle with complaints of lower abdominal pain. Patient reports pain that started this morning when he awoke. It is in the lower abdomen and pelvis. It was rated as severe, cramping type pain at this time. He took ibuprofen and Tylenol which has decreased the pain to a 3/5. Is still constant. Worse with palpation and movement. Does not radiate. No flank pain. No chest pain, cough, shortness of breath or fever. No vaginal bleeding or discharge. No history of ovarian cyst or torsion. No previous abdominal pathology or surgeries. Patient is transgender male, currently taking testosterone and transitioning female to male. REVIEW OF SYSTEMS: 10 systems were reviewed and negative with the exception of the elements mentioned in the history of present illness. PAST MEDICAL HISTORY: Anorexia, scoliosis, rheumatoid arthritis PAST SURGICAL HISTORY: No recent surgical history. SOCIAL HISTORY: Nonsmoker. FAMILY HISTORY: Noncontributory EXAMINATION: Vitals: Triage VS reviewed General Appearance: Alert, no distress Head: normocephalic, atraumatic Eyes: Pupils equal and round, no conjunctival pallor or injection ENT, Mouth: Mucous membranes moist Neck: Normal inspection, supple, non-tender Respiratory: Lungs are clear to auscultation Cardiovascular: Regular rate and rhythm Gastrointestinal: Abdomen is soft and nondistended. There is tenderness in the lower abdomen and suprapubic region. No tympany rigidity. No guarding. Bowel sounds are present all 4 quadrants. Neurological: A&O, nonfocal, normal gait Skin: Warm and dry, no rash Extremities: Nontender, no pedal edema Psychiatric: Mood and affect normal DIFFERENTIAL DIAGNOSES: Including but not limited to ovarian cyst, ovarian torsion, uterine cramps, appendicitis, renal colic, cystitis MDM: 9:55 a.m. Lower abdominal pelvic pain with some tenderness in right lower quadrant at McBurney's point. No guarding. No rigidity. No rebound tenderness. No CVA tenderness. Patient is male transgender, transition from female the female currently taking testosterone. I do feel that ultrasound is warranted to rule out torsion and appendicitis, although appendicitis is unlikely. Vital signs are within normal limits. No acute distress. 10:45 a.m. Laboratory studies are within normal limits including a normal urinalysis. Ultrasounds are pending. 11:50 a.m. Notified by radiologist Dr. Ragland. Appendix is visualized on the ultrasound with no evidence of acute appendicitis. Pelvic ultrasound does reveal a right- sided complex ovarian cyst, possibly recently ruptured hemorrhagic. Patient re- evaluated. He is feeling significantly better. No abdominal pain. Abdominal exam is benign. We discussed outpatient follow-up with gynecology for the complex cyst. We discuss high-dose anti-inflammatories. We discussed ED precautions for any worsening pain, fever, lightheadedness, dizziness or chest pain. He is comfortable this plan and discharged home stable condition. SUPERVISION: This patient was independently evaluated without direct involvement of or examination by the attending physician. CONSULTATION: None - History Smoking Status: Former smoker - Objective Vital Signs: Initial Vital Signs Temperature (C) 98.4 F 03/05/18 09:25 Heart Rate 105 H 03/05/18 09:25 Respiratory Rate 16 03/05/18 09:25 Blood Pressure 124/73 H 03/05/18 09:25 O2 Sat (%) 98 03/05/18 09:25 O2 Delivery Mode Room Air Allergies/Adverse Reactions: No Known Allergies Allergy (Verified 08/03/17 16:22) Home Medications: Medication Instructions Recorded Acetaminophen [Tylenol ES 500 mg 1,000 mg PO Q6 PRN 08/03/17 (*)] Ibuprofen [Motrin (*)] 400 - 800 mg PO Q6HRS PRN 08/03/17 Testosterone IM [Testosterone 34 mg IM TU@0900 08/03/17 100mg/ml IM inj (*)] Adderall 10 MG (*) 03/05/18 Naproxen [Naprosyn] 500 mg PO BID #20 tablet 03/05/18 Laboratory Results: Laboratory Results 03/05/18 10:04 03/05/18 10:04 03/05/18 03/05/18 03/05/18 10:04 10:04 10:04 WBC 7.28 10^3/uL 10^3/uL (3.80-9.50) RBC 5.21 10^6/uL 10^6/uL (4.18-5.33) Hgb 13.7 g/dL g/dL (12.6-16.3) Hct 42.6 % % (38.0-47.0) MCV 81.8 fL fL (81.5-99.8) MCH 26.3 pg L pg (27.9-34.1) MCHC 32.2 g/dL L g/dL (32.4-36.7) RDW 13.1 % % (11.5-15.2) Plt Count 242 10^3/uL 10^3/uL (150-400) MPV 8.7 fL fL (8.7-11.7) Neut % (Auto) 74.7 % H % (39.3-74.2) Lymph % (Auto) 16.2 % % (15.0-45.0) Sanders % (Auto) 6.7 % % (4.5-13.0) Eos % (Auto) 1.9 % % (0.6-7.6) Baso % (Auto) 0.4 % % (0.3-1.7) Nucleat RBC Rel Count 0.0 % % (0.0-0.2) Absolute Neuts (auto) 5.43 10^3/uL 10^3/uL (1.70-6.50) Absolute Lymphs (auto) 1.18 10^3/uL 10^3/uL (1.00-3.00) Absolute Monos (auto) 0.49 10^3/uL 10^3/uL (0.30-0.80) Absolute Eos (auto) 0.14 10^3/uL 10^3/uL (0.03-0.40) Absolute Basos (auto) 0.03 10^3/uL 10^3/uL (0.02-0.10) Absolute Nucleated RBC 0.00 10^3/uL 10^3/uL (0-0.01) Immature Gran % 0.1 % % (0.0-1.1) Immature Gran # 0.01 10^3/uL 10^3/uL (0.00-0.10) Sodium 140 mEq/L mEq/L (135-145) Potassium 4.2 mEq/L mEq/L (3.3-5.0) Chloride 107 mEq/L mEq/L (97-110) Carbon Dioxide 24 mEq/l mEq/l (22-31) Anion Gap 9 mEq/L mEq/L (6-14) BUN 12 mg/dL mg/dL (7-23) Creatinine 0.7 mg/dL mg/dL (0.6-1.0) Estimated GFR > 60 Glucose 95 mg/dL mg/dL (70-100) Calcium 9.3 mg/dL mg/dL (8.5-10.4) Total Bilirubin 0.6 mg/dL mg/dL (0.1-1.4) Conjugated Bilirubin 0.2 mg/dL mg/dL (0.0-0.5) Unconjugated Bilirubin 0.4 mg/dL mg/dL (0.0-1.1) AST 33 IU/L IU/L (14-46) ALT 42 IU/L IU/L (9-52) Alkaline Phosphatase 68 IU/L IU/L (38-126) Total Protein 7.4 g/dL g/dL (6.3-8.2) Albumin 4.2 g/dL g/dL (3.5-5.0) Lipase 65 IU/L IU/L (23-300) Beta HCG, Qual NEGATIVE Urine Color Urine Appearance Urine pH Ur Specific [place] Urine Protein Urine Ketones Urine Blood Urine Nitrate Urine Bilirubin Urine Urobilinogen Ur Leukocyte Esterase Urine RBC Urine WBC Ur Epithelial Cells Urine Mucus Urine Glucose 03/05/18 09:40 WBC RBC Hgb Hct MCV MCH MCHC RDW Plt Count MPV Neut % (Auto) Lymph % (Auto) Sanders % (Auto) Eos % (Auto) Baso % (Auto) Nucleat RBC Rel Count Absolute Neuts (auto) Absolute Lymphs (auto) Absolute Monos (auto) Absolute Eos (auto) Absolute Basos (auto) Absolute Nucleated RBC Immature Gran % Immature Gran # Sodium Potassium Chloride Carbon Dioxide Anion Gap BUN Creatinine Estimated GFR Glucose Calcium Total Bilirubin Conjugated Bilirubin Unconjugated Bilirubin AST ALT Alkaline Phosphatase Total Protein Albumin Lipase Beta HCG, Qual Urine Color YELLOW Urine Appearance CLEAR Urine pH 6.0 (5.0-7.5) Ur Specific [place] 1.014 (1.002-1.030) Urine Protein NEGATIVE (NEGATIVE) Urine Ketones NEGATIVE (NEGATIVE) Urine Blood NEGATIVE (NEGATIVE) Urine Nitrate NEGATIVE (NEGATIVE) Urine Bilirubin NEGATIVE (NEGATIVE) Urine Urobilinogen NEGATIVE EU EU (0.2-1.0) Ur Leukocyte Esterase NEGATIVE (NEGATIVE) Urine RBC NONE SEEN /hpf /hpf (0-3) Urine WBC 1-3 /hpf /hpf (0-3) Ur Epithelial Cells TRACE /lpf /lpf (NONE-1+) Urine Mucus TRACE /lpf /lpf (NONE-1+) Urine Glucose NEGATIVE (NEGATIVE) Medications Given: Discontinued Medications Sodium Chloride (Ns) 1,000 mls @ 0 mls/hr IV EDNOW ONE; Wide Open PRN Reason: Protocol Stop: 03/05/18 09:59 Last Admin: 03/05/18 10:16 Dose: 1,000 mls Departure - Departure Disposition: Home, Routine, Self-Care Clinical Impression: Complex ovarian cyst Abdominal pain Qualifiers: Abdominal location: lower abdomen, unspecified Qualified Code(s): R10.30 - Lower abdominal pain, unspecified Condition: Good Instructions: Ovarian Cyst (ED), Acute Abdominal Pain (ED) Additional Instructions: 1. Naprosyn as prescribed for 7-10 days 2. Contact boat driver for outpatient care. You will need to see them for repeat ultrasound in 2 weeks for resolution of the ovarian cyst. 3. Return to emergency department for any return of pain, fever, bleeding, lightheadedness, dizziness, chest pain or fever Referrals: Nori Rand MD [Medical Doctor] - As per Instructions Patrick Narayan DO [Doctor of Osteopathy] - As per Instructions Stand Alone Forms: Work Excuse Prescriptions: Naproxen [Naprosyn] 500 mg PO BID #20 tablet
[2018-03-05 12:42] VITALS: BP 120/72
== END 2018-03-05 12:00 | disposition home or self-care (01) ==
DX: N83.201 Unspecified ovarian cyst, right side (principal); R10.30 Lower abdominal pain, unspecified; E86.9 Volume depletion, unspecified

== ENCOUNTER 2018-06-27 15:43 | Emergency (ER) | payer MEDICAID ==
[2018-06-27 16:01] VITALS: BP 120/78
--- NOTE | 2018-06-27 16:07 | EDPHY ---
H & P Stated Complaint: left arm pain, 2 days Time Seen by Provider: 06/27/18 15:56 HPI/ROS: CHIEF COMPLAINT: Left shoulder pain HISTORY OF PRESENT ILLNESS: The patient is a 27-year-old healthy young man who comes to the emergency department complaining of left shoulder pain that began 2 days ago after he woke up from sleep. He assumed that he slept on it awkwardly however his symptoms have continued to persist although they are intermittent. He denies any chest pain or shortness of breath. He has been worked up in the past by Cardiology for palpitations but this further workup is negative. No palpitations currently. No recent fevers or infections. No recent trauma. He denies weakness numbness or paresthesias. No rash or discoloration. No headache. No neck pain. Severity: Minimal Modifying factors: Fluctuating REVIEW OF SYSTEMS: Constitutional: denies: chills, fever, recent illness, recent injury EENTM: denies: blurred vision, double vision, nose congestion Respiratory: denies: cough, shortness of breath Cardiac: denies: chest pain, irregular heart rate, lightheadedness, palpitations Gastrointestinal/Abdominal: denies: abdominal pain, diarrhea, nausea, vomiting, blood streaked stools Genitourinary: denies: dysuria, frequency, hematuria, pain Musculoskeletal: See HPI Skin: denies: lesions, rash, jaundice, bruising Neurological: See HPI denies: headache, numbness, paresthesia, tingling, dizziness, weakness Hematologic/Lymphatic: denies: blood clots, easy bleeding, easy bruising Immunologic/allergic: denies: HIV/AIDS, transplant 10 systems reviewed and negative except as noted EXAM: GENERAL: Well-appearing, well-nourished and in no acute distress. HEAD: Atraumatic, normocephalic. EYES: Pupils equal round and reactive to light, extraocular movements intact, sclera anicteric, conjunctiva are normal. ENT: TMs normal, nares patent, oropharynx clear without exudates. Moist mucous membranes. NECK: No tenderness or pain. Normal range of motion, supple without lymphadenopathy or JVD. LUNGS: Breath sounds clear to auscultation bilaterally and equal. No wheezes rales or rhonchi. HEART: Regular rate and rhythm without murmurs, rubs or gallops. ABDOMEN: Soft, nontender, normoactive bowel sounds. No guarding, no rebound. No masses appreciated. BACK: No CVA tenderness, no spinal tenderness, step-offs or deformities EXTREMITIES: Normal range of motion, no pitting or edema. No clubbing or cyanosis. NEUROLOGICAL: Cranial nerves II through XII grossly intact. Normal speech, normal gait. 5/5 strength, normal movement in all extremities, normal sensation , normal reflexes normal sensation to all dermatomes. Normal sensation to the median, ulnar and radial nerve. Normal flexion and extension of the arm. Normal dorsiflexion of the hand. Normal finger extension in all joints. Normal extension and abduction of the thumb. Normal pronation of the flexed are. Normal palmar flexion. Normal flexion of fingers the proximal joints. Normal retail administrative assistant test. Normal thumb to pinky opposition. Normal abduction of the thumb. Normal flexion of the 5th finger normal spreading and adducting of fingers. PSYCH: Normal mood, normal affect. SKIN: Warm, dry, normal turgor, no visible rashes or lesions. Source: Patient Exam Limitations: No limitations - Medical/Surgical History Hx Asthma: No Hx Chronic Respiratory Disease: No Hx Diabetes: No Hx Cardiac Disease: No Hx Renal Disease: No Hx Cirrhosis: No Hx Alcoholism: No Hx HIV/AIDS: No Hx Splenectomy or Spleen Trauma: No Other PMH: anorexia, RA in remission, scoliosis - Family History Significant Family History: No pertinent family hx - Social History Smoking Status: Former smoker Alcohol Use: None Constitutional: Initial Vital Signs Temperature (C) 37 C 06/27/18 15:58 Heart Rate 98 06/27/18 15:58 Respiratory Rate 18 06/27/18 15:58 Blood Pressure 120/78 06/27/18 15:58 O2 Sat (%) 99 06/27/18 15:58 O2 Delivery Mode Room Air Allergies/Adverse Reactions: No Known Allergies Allergy (Verified 08/03/17 16:22) Home Medications: Medication Instructions Recorded Adderall 10 MG (*) 03/05/18 Wellbutrin Sr 06/27/18 Medical Decision Making ED Course/Re-evaluation: The patient complains of vague pain in his left deltoid area. He states that it is not currently present and that sometimes he has a hard time deciding where the pain is. He also pointed to his triceps area vaguely but states it does not hurt either right now. It seems that his symptoms have mostly resolved and are difficult for him to describe. He denies chest pain or shortness of breath. I have very little suspicion for cardiac etiology in this healthy 27-year-old patient. No signs of trauma. No limitation of movement with thorough examination. Normal sensation throughout. No symptoms consistent with cervical spine injury or radiculopathy. He originally thought that he had slept on his arm wrong. This may be the case although I do not see a particular neuropathy in the patient cannot describe any specific neuropathy symptoms. We agreed to treat expectantly for now and I will give him a referral for Neurology if his symptoms are not improving. We also discussed returning to the emergency department if his symptoms worsen. Differential Diagnosis: Partial list of the Differential diagnosis considered include but were not limited to; neuropathy, muscle strain and although unlikely based on the history and physical exam, I also considered radiculopathy, acute coronary disease. I discussed these differential diagnoses and the plan with the patient as well as the usual and expected course. The patient understands that the diagnosis is provisional and that in medicine we are not always correct and that further workup is often warranted. Usual and customary warnings were given. All of the patient's questions were answered. The patient was instructed to return to the emergency department should the symptoms at all worsen or return, otherwise to followup with the physician as we discussed. Departure - Departure Disposition: Home, Routine, Self-Care Clinical Impression: Left shoulder pain Qualifiers: Chronicity: unspecified Qualified Code(s): M25.512 - Pain in left shoulder Condition: Good Instructions: Shoulder Pain (ED) Referrals: NONE *PRIMARY CARE P,. [Primary Care Provider] - As per Instructions Lui Ching DO [Medical Doctor] - 5-7 days, if not improved
== END 2018-06-27 16:30 | disposition home or self-care (01) ==
LOC: CED 15:43
DX: M25.512 Pain in left shoulder (principal); Z87.891 Personal history of nicotine dependence
CPT/HCPCS: 99282-ER

== ENCOUNTER 2018-07-27 21:45 | Emergency (ER) | payer MEDICAID ==
[2018-07-27] MEDS ORDERED: LORazepam 0.5 MG TAB PO ONE (22:04)
== END 2018-07-27 22:53 | disposition home or self-care (01) ==
DX: R06.00 Dyspnea, unspecified (principal); F41.9 Anxiety disorder, unspecified; F90.9 Attention-deficit hyperactivity disorder, unspecified type; F64.9 Gender identity disorder, unspecified; Z87.891 Personal history of nicotine dependence

== ENCOUNTER 2018-07-29 19:45 | Emergency (ER) | payer MEDICAID ==
[2018-07-29] MEDS ORDERED: LORazepam 1 MG TAB ONE (20:07)
[2018-07-29] MEDS: LORazepam 1 MG TAB PO ONE ×2 (20:21→20:30)
[2018-07-29] MEDS ORDERED: LORazepam 0.5 MG TAB PO ONE (20:26)
--- NOTE | 2018-07-29 20:40 | EDPHY ---
H & P Stated Complaint: panic attack Time Seen by Provider: 07/29/18 19:55 HPI/ROS: Chief complaint: Panic attack History of present illness: This is a 27-year-old male who presents to the emergency department who believes he is having a panic attack. Patient states he has had similar symptoms in the past from panic attacks. He is feeling anxious and having trouble breathing. He denies any specific precipitating factors. He denies any alleviating factors. He denies other associated signs or symptoms. - Personal History Current Tetanus/Diphtheria Vaccine: Yes Tetanus Vaccine Date: < 10 years - Medical/Surgical History Hx Asthma: No Hx Chronic Respiratory Disease: No Hx Diabetes: No Hx Cardiac Disease: No Hx Renal Disease: No Hx Cirrhosis: No Hx Alcoholism: No Hx HIV/AIDS: No Hx Splenectomy or Spleen Trauma: No Other PMH: anorexia, RA in remission, scoliosis, anxiety - Social History Smoking Status: Former smoker - Physical Exam Exam: General Appearance: Alert, nontoxic. Eyes: Pupils equal and round no injection. Respiratory: Chest is non tender, lungs are clear to auscultation. Cardiac: regular rate and rhythm Gastrointestinal: Abdomen is soft and non tender, no masses, bowel sounds normal. Musculoskeletal: Neck is supple and non tender. Extremities have full range of motion and are non tender. Skin: No rashes or lesions. Psychiatric: Appears anxious, will not make eye contact with me, fidgeting. Constitutional: Initial Vital Signs Temperature (C) 36.4 C 07/29/18 19:49 Heart Rate 124 H 07/29/18 19:49 Respiratory Rate 20 07/29/18 19:49 Blood Pressure 109/78 07/29/18 19:49 O2 Sat (%) 98 07/29/18 19:49 O2 Delivery Mode Room Air Allergies/Adverse Reactions: No Known Allergies Allergy (Verified 08/04/18 22:10) Home Medications: Medication Instructions Recorded Adderall 10 MG (*) 03/05/18 Wellbutrin Sr 06/27/18 Propranolol HCl 08/04/18 Medical Decision Making - Diagnostics Imaging: I viewed and interpreted images myself ED Course/Re-evaluation: Patient seen under the supervision of my secondary supervising physician Dr. Celine Velasquez. Patient presents with what he believes is a panic attack. He is feeling anxious and short of breath. He appears anxious. He is given Ativan , he declined a full 1 mg, he was given 0.5 mg. Chest x-ray was obtained and unremarkable. Re-evaluation he states he is feeling much better. He has an appointment with a psychiatrist tomorrow, he is asked to keep this. Strict return precautions are given. Differential Diagnosis: Included but not limited to anxiety, depression - Data Points Medications Given: Discontinued Medications Lorazepam (Ativan) 1 mg PO EDNOW ONE Stop: 07/29/18 20:21 Last Admin: 07/29/18 20:30 Dose: Not Given Lorazepam (Ativan) 0.5 mg PO EDNOW ONE Stop: 07/29/18 20:27 Last Admin: 07/29/18 20:30 Dose: 0.5 mg Departure - Departure Disposition: Home, Routine, Self-Care Clinical Impression: Anxiety Condition: Good Instructions: Anxiety (ED) Additional Instructions: Please follow-up with a primary care doctor this week for continued evaluation and care Please follow-up with your psychiatrist tomorrow as already scheduled for further care If symptoms worsen or new symptoms develop return to the emergency room for recheck Referrals: NONE *PRIMARY CARE P,. [Primary Care Provider] - As per Instructions [facility],. [Clinic] - As per Instructions Chey Linares MD [Medical Doctor] - As per Instructions
[2018-07-29 20:43] VITALS: BP 126/72
== END 2018-07-29 20:42 | disposition home or self-care (01) ==
DX: F41.9 Anxiety disorder, unspecified (principal); Z87.891 Personal history of nicotine dependence

== ENCOUNTER 2018-08-04 22:06 | Emergency (ER) | payer MEDICAID ==
--- NOTE | 2018-08-04 22:15 | EDPHY ---
H & P Stated Complaint: "I feel like I am on a rollercoaster and it drops." Time Seen by Provider: 08/04/18 22:15 HPI/ROS: HPI CHIEF COMPLAINT: Chest pressure, numbness and tingling all over, possible anxiety, "I dont feel well" HISTORY OF PRESENT ILLNESS: This patient is a 27-year-old male, he is otherwise healthy, does have a history of anxiety, presents to the emergency room stating does not "feel well". He reports chest pressure, numbness and tingling all over, he is not sure this is actually possible anxiety. He states he does suffer from anxiety but usually does not feel like this. He states for the past week he has felt "off" denies any chest pain. He does complain of chest tightness throughout. Denies nausea vomiting, denies shortness of breath , denies pleuritic pain, denies back pain, denies diarrhea, denies fever, denies cough. He reports to me he saw his psychiatrist and was prescribed propranolol. Past Medical History: Anxiety Past Surgical History: No recent surgical history Social History: Denies daily use of drugs alcohol tobacco. Family History: Noncontributory ROS REVIEW OF SYSTEMS: 10 Systems were reviewed and negative with the exception of the elements mentioned in the history of present illness. Exam Constitutional nontoxic, triage nursing summary reviewed, vital signs reviewed , awake/alert. Vital signs stable. Eyes normal conjunctivae and sclera, EOMI, PERRLA. HENT normal inspection, atraumatic, moist mucus membranes, no epistaxis, neck supple/ no meningismus, no raccoon eyes. Respiratory clear to auscultation bilaterally, normal breath sounds, no respiratory distress, no wheezing. Cardiovascular rate normal, regular rhythm, no murmur, no edema, distal pulses normal. Gastrointestinal soft, non-tender, no rebound, no guarding, normal bowel sounds, no distension, no pulsatile mass. Genitourinary no CVA tenderness. Musculoskeletal no midline vertebral tenderness, full range of motion, no calf swelling, no tenderness of extremities, no meningismus, good pulses, neurovascularly intact. Skin pink, warm, & dry, no rash, skin atraumatic. Neurologic awake, alert and oriented x 3, AAOx3, moves all 4 extremities equally, motor intact, sensory intact, CN II-XII intact, normal cerebellar, normal vision, normal speech. Psychiatric normal mood/affect. Heme/Lymph/Immune no lymphadenopathy. Differential Diagnosis: Includes but is not limited to in a particular order acute anxiety, panic attack, electrolyte disturbance, cardiac arrhythmia, ACS, thyroid dysfunction Medical Decision Making: Plan for this patient IV establishment IV fluid bolus , IV Ativan, basic electrolytes, TSH, troponin, chest x-ray, EKG, and re- evaluate. Re-evaluation: Notified by nursing staff that he is refusing IV fluids and IV Ativan He has declined this. EKG interpretation by me on record in [facility] system. Impression time of EKG 2248, sinus rhythm rate of 90, unremarkable EKG no signs of acute ischemia or cardiac arrhythmia or WPW or Brugada. Patient's labs reviewed unremarkable negative troponin negative D-dimer Patient's TSH noted be very low indicating hyperthyroidism. I have discussed this with him. I do recommend he follows up with his primary care doctor about further thyroid function testing and thyroid management. I have discussed this at length with him he understands and is comfortable with this plan. We discussed return precautions return emergency room if chest pain, shortness of breath, fever, not doing well. 0158: Patient was re-evaluated this time and sleeping. He denies any chest pain or shortness of breath. His vital signs are stable. Unremarkable EKG. Recommend close follow-up with his primary care doctor about thyroid testing. Return precautions discussed he is comfortable this plan. Chest x-ray unremarkable. I also discussed with him that this could be anxiety. However recommend close follow-up with his primary care doctor about thyroid evaluation. And return precautions Source: Patient - Personal History Current Tetanus/Diphtheria Vaccine: Yes Current Tetanus Diphtheria and Acellular Pertussis (TDAP): Yes Tetanus Vaccine Date: < 10 years - Medical/Surgical History Hx Asthma: No Hx Chronic Respiratory Disease: No Hx Diabetes: No Hx Cardiac Disease: No Hx Renal Disease: No Hx Cirrhosis: No Hx Alcoholism: No Hx HIV/AIDS: No Hx Splenectomy or Spleen Trauma: No Other PMH: anorexia, RA in remission, scoliosis, anxiety - Social History Smoking Status: Former smoker Constitutional: Initial Vital Signs Temperature (C) 36.3 C 08/04/18 22:08 Heart Rate 103 H 08/04/18 22:08 Respiratory Rate 16 08/04/18 22:08 Blood Pressure 113/82 H 08/04/18 22:08 O2 Sat (%) 97 08/04/18 22:08 O2 Delivery Mode Room Air Allergies/Adverse Reactions: No Known Allergies Allergy (Verified 08/04/18 22:10) Home Medications: Medication Instructions Recorded Adderall 10 MG (*) 03/05/18 Wellbutrin Sr 06/27/18 Propranolol HCl 08/04/18 Medical Decision Making - Diagnostics Imaging Results: Imaging Impressions Chest X-Ray 08/04/18 22:26 Impression: 1. No acute pulmonary disease. 2. Thoracic dextroscoliosis. - Data Points Laboratory Results: Laboratory Results 08/04/18 22:32 08/04/18 22:32 08/04/18 08/04/18 08/04/18 22:36 22:32 22:32 WBC RBC Hgb Hct MCV MCH MCHC RDW Plt Count MPV Neut % (Auto) Lymph % (Auto) [place] % (Auto) Eos % (Auto) Baso % (Auto) Nucleat RBC Rel Count Absolute Neuts (auto) Absolute Lymphs (auto) Absolute Monos (auto) Absolute Eos (auto) Absolute Basos (auto) Absolute Nucleated RBC Immature Gran % Immature Gran # PT 13.8 SEC SEC (12.0-15.0) INR 1.10 (0.83-1.16) APTT 31.7 SEC SEC (23.0-38.0) D-Dimer 0.48 ug/mLFEU ug/mLFEU (0.00-0.50) Sodium 141 mEq/L mEq/L (135-145) Potassium 4.2 mEq/L mEq/L (3.5-5.2) Chloride 105 mEq/L mEq/L (97-110) Carbon Dioxide 25 mEq/l mEq/l (22-31) Anion Gap 11 mEq/L mEq/L (6-14) BUN 13 mg/dL mg/dL (7-23) Creatinine 0.8 mg/dL mg/dL (0.7-1.3) Estimated GFR > 60 Glucose 84 mg/dL mg/dL (70-100) Calcium 9.3 mg/dL mg/dL (8.5-10.4) Magnesium 2.2 mg/dL mg/dL (1.6-2.3) Total Bilirubin 0.4 mg/dL mg/dL (0.1-1.4) Conjugated Bilirubin 0.2 mg/dL mg/dL (0.0-0.5) Unconjugated Bilirubin 0.2 mg/dL mg/dL (0.0-1.1) AST 48 IU/L IU/L (17-59) ALT 60 IU/L IU/L (21-72) Alkaline Phosphatase 68 IU/L IU/L (38-126) POC Troponin I 0.00 ng/mL ng/mL (0.00-0.08) NT-Pro-B Natriuret Pep < 11 pg/mL pg/mL (0-125) Total Protein 8.1 g/dL g/dL (6.3-8.2) Albumin 4.7 g/dL g/dL (3.5-5.0) TSH < 0.015 uIU/mL L uIU/mL (0.465-4.680) 08/04/18 22:32 WBC 7.29 10^3/uL 10^3/uL (3.80-9.50) RBC 5.45 10^6/uL 10^6/uL (4.40-6.38) Hgb 15.0 g/dL g/dL (13.7-17.5) Hct 46.3 % % (40.0-51.0) MCV 85.0 fL fL (81.5-99.8) MCH 27.5 pg L pg (27.9-34.1) MCHC 32.4 g/dL g/dL (32.4-36.7) RDW 13.6 % % (11.5-15.2) Plt Count 272 10^3/uL 10^3/uL (150-400) MPV 8.5 fL L fL (8.7-11.7) Neut % (Auto) 62.8 % % (39.3-74.2) Lymph % (Auto) 27.3 % % (15.0-45.0) [place] % (Auto) 7.4 % % (4.5-13.0) Eos % (Auto) 1.9 % % (0.6-7.6) Baso % (Auto) 0.5 % % (0.3-1.7) Nucleat RBC Rel Count 0.0 % % (0.0-0.2) Absolute Neuts (auto) 4.57 10^3/uL 10^3/uL (1.70-6.50) Absolute Lymphs (auto) 1.99 10^3/uL 10^3/uL (1.00-3.00) Absolute Monos (auto) 0.54 10^3/uL 10^3/uL (0.30-0.80) Absolute Eos (auto) 0.14 10^3/uL 10^3/uL (0.03-0.40) Absolute Basos (auto) 0.04 10^3/uL 10^3/uL (0.02-0.10) Absolute Nucleated RBC 0.00 10^3/uL 10^3/uL (0-0.01) Immature Gran % 0.1 % % (0.0-1.1) Immature Gran # 0.01 10^3/uL 10^3/uL (0.00-0.10) PT INR APTT D-Dimer Sodium Potassium Chloride Carbon Dioxide Anion Gap BUN Creatinine Estimated GFR Glucose Calcium Magnesium Total Bilirubin Conjugated Bilirubin Unconjugated Bilirubin AST ALT Alkaline Phosphatase POC Troponin I NT-Pro-B Natriuret Pep Total Protein Albumin TSH Medications Given: Discontinued Medications Sodium Chloride (Ns) 1,000 mls @ 0 mls/hr IV EDNOW ONE; Wide Open PRN Reason: Protocol Stop: 08/04/18 22:26 Last Admin: 08/04/18 22:37 Dose: Not Given Lorazepam (Ativan Injection) 0.5 mg IVP EDNOW ONE Stop: 08/04/18 22:27 Last Admin: 08/04/18 22:37 Dose: Not Given Point of Care Test Results: Chemistry 08/04/18 22:36 POC Troponin I 0.00 ng/mL ng/mL (0.00-0.08) Departure - Departure Disposition: Home, Routine, Self-Care Clinical Impression: Hyperthyroidism Condition: Good Instructions: Hyperthyroidism (ED) Additional Instructions: 1. Rest and stay well-hydrated. 2. Return to the emergency room if there is worsening symptoms 3. Please follow up with your primary care doctor Referrals: NONE *PRIMARY CARE P,. [Primary Care Provider] - As per Instructions [facility],. [Clinic] - As per Instructions
[2018-08-04] MEDS ORDERED: NS 1,000 ML IV ONE (22:25)
[2018-08-04] MEDS ORDERED: LORazepam 2 MG/ML INJ IVP ONE (22:26)
[2018-08-04 22:41] LABS: PLATELET COUNT 272 10^3/uL (150-400)
[2018-08-04 22:50] LABS: INR 1.1 (0.83-1.16); PROTIME(PATIENT) 13.8 SEC (12.0-15.0)
[2018-08-05 02:26] VITALS: BP 119/67
--- NOTE | 2018-08-05 07:49 | CPEKG ---
Test Reason : OPEN Blood Pressure : / mmHG Vent. Rate : 090 BPM Atrial Rate : 091 BPM P-R Int : 142 ms QRS Dur : 081 ms QT Int : 352 ms P-R-T Axes : 031 040 042 degrees QTc Int : 431 ms Sinus rhythm Confirmed by Alo Richmond ([id number]) on 08/05/2018 7:48:51 AM Referred By: Alo Richmond Confirmed By:Alo Richmond
== END 2018-08-05 02:28 | disposition home or self-care (01) ==
DX: E03.9 Hypothyroidism, unspecified (principal); M41.84 Other forms of scoliosis, thoracic region; E86.9 Volume depletion, unspecified; Z87.891 Personal history of nicotine dependence
CPT/HCPCS: 84484-ER

== ENCOUNTER 2018-09-29 21:06 | Emergency (ER) | payer MEDICAID | END 2018-09-29 22:30 | disposition home or self-care (01) ==